=== PATIENT | male | born 1950 | race Caucasian/White ===

== ENCOUNTER 2019-12-20 16:14 | Emergency (ER) | payer MEDICARE, OTHER ==
[2019-12-20] MEDS ORDERED: ONDANSETRON 4 MG/2 ML VIAL IVP STA (16:57)
--- NOTE | 2019-12-20 17:18 | XRAY Report ---
Reason: cough Procedure Date: 12/20/2019 Accession Number: [id number] / [id number] Procedure: XR - Chest 2 View X-Ray CPT Code: 63214 Final Report FULL RESULT: EXAM: CHEST RADIOGRAPHY EXAM DATE: 12/20/2019 05:09 PM. CLINICAL HISTORY: Cough. COMPARISON: None. TECHNIQUE: 2 views. FINDINGS: Lungs/Pleura: Elevated right hemidiaphragm. Lungs clear. No infiltrate or effusion. Mediastinum: Tortuous aorta. Heart size normal. Other: None. IMPRESSION: 1. Lungs clear. Elevated right hemidiaphragm. [facility]
[2019-12-20 18:36] LABS: EOSINOPHILS # (AUTO) 0.1 10^3/uL (0.0-0.7); EOSINOPHILS % (AUTO) 0.6 %; HGB - HEMOGLOBIN 16.4 g/dL (14.0-18.0); LYMPHOCYTES % (AUTO) 22.5 %; MEAN CORPUSCULAR HEMOGLOBIN 30.3 pg (27.0-31.0); MEAN CORPUSCULAR HGB CONC 34.7 g/dL (32.0-36.0); MEAN CORPUSCULAR VOLUME 87.4 fL (80.0-94.0); MEAN PLATELET VOLUME 8.9 fL (7.4-11.4); MONOCYTES # (AUTO) 0.7 10^3/uL (0.0-1.0); MONOCYTES % (AUTO) 8.2 %; NEUTROPHILS # (AUTO) 5.9 10^3/uL (1.5-6.6); NEUTROPHILS % (AUTO) 68.4 %; PLT - PLATELET COUNT 357 10^3/uL (130-450); RED BLOOD COUNT 5.41 10^6/uL (4.70-6.10); WHITE BLOOD COUNT 8.7 x10^3/uL (4.8-10.8)
[2019-12-20] MEDS ORDERED: LORazepam 2 MG/ML VIAL IVP STA (18:41)
--- NOTE | 2019-12-20 18:47 | ED Physician Documentation ---
History of Present Illness - Stated complaint Stated Complaint: SOA/VOM - Chief complaint Chief Complaint: General - History obtained from History obtained from: Patient, Family - Additonal information Additional information: Patient comes emergency department complaining of progressive dyspnea for the last 3 weeks. The patient denies any fevers or chills. No cough. No chest or abdominal pain. No lower extremity edema. No history of DVT. No cardiac history. Patient has a history of hiatal hernia and states that he has had multiple surgical repairs for this. 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 Patient had a prolonged course with G-tube, J-tube, esophageal anastomosis, and ultimately, went back to oral feeds. However, despite doing well for several months, the patient began to develop shortness of breath as above. Pt and are visiting family here, but reside in the [facility] area. Review of Systems Ten Systems: 10 systems reviewed and negative Constitutional: reports: Reviewed and negative Eyes: reports: Reviewed and negative Ears: reports: Reviewed and negative Nose: reports: Reviewed and negative Throat: reports: Reviewed and negative Cardiac: reports: Reviewed and negative Respiratory: reports: Dyspnea GI: reports: Reviewed and negative : reports: Reviewed and negative Skin: reports: Reviewed and negative Musculoskeletal: reports: Reviewed and negative Neurologic: reports: Reviewed and negative Psychiatric: reports: Reviewed and negative Endocrine: reports: Reviewed and negative Immunocompromised: reports: Reviewed and negative PD PAST MEDICAL HISTORY - Present Medications Home Medications: Ambulatory Orders Medication Instructions Recorded Confirmed Lorazepam [Ativan] 1 mg PO Q4HR 4 Days #15 tablet 12/20/19 - Allergies Allergies/Adverse Reactions: Allergies Allergy/AdvReac Type Severity Reaction Status Date / Time No Known Drug Allergies Allergy Verified 12/20/19 16:38 PD ED PE NORMAL - Vitals Vital signs reviewed: Yes - General General: Alert and oriented X 3, Other (Pt is tachypneic and appears anxious.) - HEENT HEENT: Atraumatic, PERRL, EOMI - Neck Neck: Supple, no meningeal sign - Cardiac Cardiac: RRR, No murmur - Respiratory Respiratory: Clear bilaterally - Abdomen Abdomen: Soft, Non tender, Non distended - Back Back: No CVA TTP - Derm Derm: Normal color, Warm and dry, No rash - Extremities Extremities: No deformity, No tenderness to palpate, Normal ROM s pain, No edema, No calf tenderness / cord - Neuro Neuro: Alert and oriented X 3, bridge leverman 2-12 intact, No motor deficit, No sensory deficit, Normal speech - Psych Psych: Normal mood, Normal affect Results - Vitals Vitals: Vital Signs - 24 hr 12/20/19 12/20/19 12/20/19 16:33 18:38 20:05 Temperature 36.6 C Heart Rate 65 61 80 Respiratory 20 20 22 Rate Blood Pressure 135/91 H 155/88 H 130/85 H O2 Saturation 100 100 97 12/20/19 20:40 Temperature Heart Rate 86 Respiratory 22 Rate Blood Pressure 132/90 H O2 Saturation 98 Oxygen O2 Source Room air - EKG (time done) 1708 Rate: Rate (enter#) (63) Rhythm: NSR [place]: Normal Intervals: Normal ND, Other (IVCD) QRS: Normal Ischemia: ST depression (minimal). No: T wave inversion Compare to prior EKG: Old EKG unavailable Computer interpretation: Agree with computer - Labs Labs: Laboratory Tests 12/20/19 12/20/19 12/20/19 18:24 18:24 18:24 WBC 8.7 RBC 5.41 Hgb 16.4 Hct 47.3 MCV 87.4 MCH 30.3 MCHC 34.7 RDW 13.0 Plt Count 357 MPV 8.9 Neut # (Auto) 5.9 Lymph # (Auto) 2.0 [place] # (Auto) 0.7 Eos # (Auto) 0.1 Baso # (Auto) 0.0 Absolute Nucleated RBC 0.00 Nucleated RBC % 0.0 Sodium 138 Potassium 4.6 Chloride 102 Carbon Dioxide 23 Anion Gap 13.0 BUN 34 H Creatinine 1.0 Estimated GFR (MDRD) 74 L Glucose 101 H Lactic Acid Calcium 9.1 Total Bilirubin 0.9 AST 17 ALT 16 Alkaline Phosphatase 83 Troponin I High Sens 2.4 Total Protein 7.3 Albumin 4.3 Globulin 3.0 Albumin/Globulin Ratio 1.4 Lipase 28 12/20/19 19:06 WBC RBC Hgb Hct MCV MCH MCHC RDW Plt Count MPV Neut # (Auto) Lymph # (Auto) [place] # (Auto) Eos # (Auto) Baso # (Auto) Absolute Nucleated RBC Nucleated RBC % Sodium Potassium Chloride Carbon Dioxide Anion Gap BUN Creatinine Estimated GFR (MDRD) Glucose Lactic Acid 1.9 Calcium Total Bilirubin AST ALT Alkaline Phosphatase Troponin I High Sens Total Protein Albumin Globulin Albumin/Globulin Ratio Lipase - Rads (name of study) CT abd/pelvis Radiology: Final report received, Discussed with radchava, EMP read indepedently, See rad report CTA thorax Radiology: Final report received, Discussed with rads, EMP read indepedently, See rad report CXR Radiology: Final report received, EMP read indepedently, See rad report (negative) PD MEDICAL DECISION MAKING - ED course Complexity details: reviewed results, re-evaluated patient, considered differential, d/w patient, d/w family ED course: PT was worked up extensively for his dyspnea, in consideration of his complicated history. Despite the pt's tachypnea, his other vital signs were surprisingly normal. His CXR and EKG were also unremarkable. CBC showed a normal WBC count and troponin was negative. Pt was ultimately sent for CTA of the chest and CT abd/pelvix with contrast, before which he was given ATivan 1mg IV. The CT scans were also negative, both for PE and for recurrence of the hernia or fistula. A seroma adjacent to the esophagus was noted. On re- evaluation, the pt was calm and comfortable. His respiratory rate was normal. I d/w the pt that his entire work-up is negative. I suspect anxiety tonight, and we have discussed management of this at home. His seroma is unlikely large enough to cause significant dyspnea, but pt may call his surgeon to discuss what the expected course of this will be, and whether any intervention is indicated. At this time, the pt is stable for d/c home. Departure - Departure Disposition: Home, Self Care Clinical Impression: Dyspnea, Anxiety Condition: Good Instructions: ED Dyspnea Shortness of Breath Prescriptions: Lorazepam [Ativan] 1 mg PO Q4HR 4 Days #15 tablet Comments: Extensive work-up today was negative, With the exception of your CT report showing a seroma, or cellular fluid collection, near your esophagus. This is not taking up a large amount of space, and can sometimes be seen after surgery. Please touch base with your surgeon to determine whether there are any issues that should arise from this. Your CT results are as below: EXAM: CT ANGIOGRAM CHEST EXAM DATE: 12/20/2019 07:42 PM. CLINICAL HISTORY: Shortness of breath, dyspnea and tachycardia. Previous history of gastric/pericardial fistula and hiatal hernias. COMPARISON: ABDOMEN/PELVIS W/ 12/20/2019 7:29 PM. TECHNIQUE: Routine helical imaging was performed through the chest in the pulmonary arterial phase. IV Contrast: 90 cc Optiray 320. Reconstructions: Coronal 3-D MIP reconstructions. Sagittal and coronal. In accordance with CT protocol optimization, one or more of the following dose reduction techniques were utilized for this exam: automated exposure control, adjustment of mA and/or KV based on patient size, or use of iterative reconstructive technique. FINDINGS: Pulmonary Arteries: Diagnostic quality: Adequate through the segmental arteries. No evidence for acute or chronic pulmonary emboli. RV/LV is within normal limits. There is no interventricular septal bowing. There is no reflux of contrast material in the IVC. Lungs/Pleura: No consolidation, nodules, or edema. No effusions or pneumothorax. Mediastinum: There is a gastric pull-through into the anterior mediastinum. There is a large tubular fluid collection in the posterior mediastinum, presumably a postoperative seroma. Heart size normal. Thoracic Aorta: Unremarkable. Upper Abdomen: Unremarkable. Other: None. IMPRESSION: 1. No CT evidence of pulmonary embolism. 2. Postsurgical changes of an anterior mediastinal gastric pull-through and large posterior mediastinal seroma. [facility] Organizational Consultant: Reading Radiologist: Asa Cruz MD Releasing Radiologist: Asa Cruz MD Released Date Time: 12/20/191956 Report 56 cc: Marga Love MD EXAM: CT ABDOMEN AND PELVIS EXAM DATE: 12/20/2019 07:42 PM. CLINICAL HISTORY: SOB, h/o gastro/pericardial fistula. Nausea and early satiety. Hiatal hernia. COMPARISONS: CHEST 2 VIEW 12/20/2019 5:01 PM CHEST ANGIO 12/20/2019 7:29 PM. TECHNIQUE: Routine helical CT imaging was performed through the abdomen and pelvis. IV contrast: 90 cc OPTIRAY 320. Enteric contrast: No. Reconstructions: Coronal and sagittal. In accordance with CT protocol optimization, one or more of the following dose reduction techniques were utilized for this exam: automated exposure control, adjustment of mA and/or KV based on patient size, or use of iterative reconstructive technique. FINDINGS: Lung Bases: Mild wispy atelectasis left greater than right lung bases. Liver: Normal. No masses. Gallbladder/Bile Ducts: Unremarkable. Spleen: Small calcified granulomata. Otherwise normal. Pancreas: Normal. Adrenal Glands: Normal. Kidneys: Normal. No masses or hydronephrosis. Peritoneal Cavity/Bowel: Incompletely visualized gastric pull-up into the anterior mediastinum. Through the anterior diaphragmatic defect, there is also herniation of the mid transverse colon without obstruction. There is incompletely visualized encapsulated fluid in the posterior inferior mediastinum suggesting seroma at esophagectomy site. There is no gaseous distention of unopacified small bowel. There is a small amount of formed stool in the colon. There is no focal pericolonic fat stranding. There is no lymphadenopathy, ascites, or pneumoperitoneum. Pelvic Organs: Bladder, prostate gland, and seminal vesicles are unremarkable. Vasculature: Mild aortic atherosclerotic calcification. Otherwise unremarkable. Bones: No significant abnormality. Other: Epigastric midline laparotomy scar. IMPRESSION: 1. Incompletely visualized encapsulated fluid collection suggesting seroma at the posterior mediastinal esophagectomy site. 2. Incompletely visualized gastric pull-up into the anterior mediastinum. 3. Herniation of the mid transverse colon into the anterior surgical diaphragmatic defect without obstruction. 4. No mass, lymphadenopathy, or inflammatory change in the abdomen or pelvis. [facility] Organizational Consultant: Reading Radiologist: Pepito Strange MD Releasing Radiologist: Pepito Strange MD Released Date Time: 12/20/192001 Discharge Date/Time: 12/20/19 20:41
[2019-12-20 18:53] LABS: ALBUMIN 4.3 g/dL (3.2-5.5); ALBUMIN/GLOBULIN RATIO 1.4 (1.0-2.2); BILIRUBIN,TOTAL 0.9 mg/dL (0.2-1.0); CALCIUM 9.1 mg/dL (8.5-10.3); TOTAL PROTEIN 7.3 g/dL (6.7-8.2)
[2019-12-20] MEDS ORDERED: IOVERSOL 320 100 ML VIAL IVP ONE ×2 (18:54→20:23)
--- NOTE | 2019-12-20 20:07 | CT Report ---
Reason: dyspnea, tachypnea Procedure Date: 12/20/2019 Accession Number: [id number] / [id number] Procedure: CT - ANGIO CHEST W/WO CPT Code: Final Report FULL RESULT: EXAM: CT ANGIOGRAM CHEST EXAM DATE: 12/20/2019 07:42 PM. CLINICAL HISTORY: Shortness of breath, dyspnea and tachycardia. Previous history of gastric/pericardial fistula and hiatal hernias. COMPARISON: ABDOMEN/PELVIS W/ 12/20/2019 7:29 PM. TECHNIQUE: Routine helical imaging was performed through the chest in the pulmonary arterial phase. IV Contrast: 90 cc Optiray 320. Reconstructions: Coronal 3-D MIP reconstructions. Sagittal and coronal. In accordance with CT protocol optimization, one or more of the following dose reduction techniques were utilized for this exam: automated exposure control, adjustment of mA and/or KV based on patient size, or use of iterative reconstructive technique. FINDINGS: Pulmonary Arteries: Diagnostic quality: Adequate through the segmental arteries. No evidence for acute or chronic pulmonary emboli. RV/LV is within normal limits. There is no interventricular septal bowing. There is no reflux of contrast material in the IVC. Lungs/Pleura: No consolidation, nodules, or edema. No effusions or pneumothorax. Mediastinum: There is a gastric pull-through into the anterior mediastinum. There is a large tubular fluid collection in the posterior mediastinum, presumably a postoperative seroma. Heart size normal. Thoracic Aorta: Unremarkable. Upper Abdomen: Unremarkable. Other: None. IMPRESSION: 1. No CT evidence of pulmonary embolism. 2. Postsurgical changes of an anterior mediastinal gastric pull-through and large posterior mediastinal seroma. [facility]
--- NOTE | 2019-12-20 20:12 | CT Report ---
Reason: SOB, h/o gastro/pericardial fistula Procedure Date: 12/20/2019 Accession Number: [id number] / [id number] Procedure: CT - Abdomen/Pelvis W CPT Code: Final Report FULL RESULT: EXAM: CT ABDOMEN AND PELVIS EXAM DATE: 12/20/2019 07:42 PM. CLINICAL HISTORY: SOB, h/o gastro/pericardial fistula. Nausea and early satiety. Hiatal hernia. COMPARISONS: CHEST 2 VIEW 12/20/2019 5:01 PM CHEST ANGIO 12/20/2019 7:29 PM. TECHNIQUE: Routine helical CT imaging was performed through the abdomen and pelvis. IV contrast: 90 cc OPTIRAY 320. Enteric contrast: No. Reconstructions: Coronal and sagittal. In accordance with CT protocol optimization, one or more of the following dose reduction techniques were utilized for this exam: automated exposure control, adjustment of mA and/or KV based on patient size, or use of iterative reconstructive technique. FINDINGS: Lung Bases: Mild wispy atelectasis left greater than right lung bases. Liver: Normal. No masses. Gallbladder/Bile Ducts: Unremarkable. Spleen: Small calcified granulomata. Otherwise normal. Pancreas: Normal. Adrenal Glands: Normal. Kidneys: Normal. No masses or hydronephrosis. Peritoneal Cavity/Bowel: Incompletely visualized gastric pull-up into the anterior mediastinum. Through the anterior diaphragmatic defect, there is also herniation of the mid transverse colon without obstruction. There is incompletely visualized encapsulated fluid in the posterior inferior mediastinum suggesting seroma at esophagectomy site. There is no gaseous distention of unopacified small bowel. There is a small amount of formed stool in the colon. There is no focal pericolonic fat stranding. There is no lymphadenopathy, ascites, or pneumoperitoneum. Pelvic Organs: Bladder, prostate gland, and seminal vesicles are unremarkable. Vasculature: Mild aortic atherosclerotic calcification. Otherwise unremarkable. Bones: No significant abnormality. Other: Epigastric midline laparotomy scar. IMPRESSION: 1. Incompletely visualized encapsulated fluid collection suggesting seroma at the posterior mediastinal esophagectomy site. 2. Incompletely visualized gastric pull-up into the anterior mediastinum. 3. Herniation of the mid transverse colon into the anterior surgical diaphragmatic defect without obstruction. 4. No mass, lymphadenopathy, or inflammatory change in the abdomen or pelvis. [facility]
[2019-12-20 20:41] VITALS: BP 132/90
== END 2019-12-20 20:41 | disposition home or self-care (01) ==
LOC: ED 16:14
DX: R06.00 Dyspnea, unspecified (principal); F41.9 Anxiety disorder, unspecified
CPT/HCPCS: 36415; 71046; 71275; 74177; 80053; 83605; 83690; 84484; 85025; 87040; 93005; 96374; 96375; 99283; 99284; J2060; Q9967